=== PATIENT | female | born 1950 | race Caucasian/White ===

== ENCOUNTER 2017-08-28 12:30 | Emergency (ER) | payer MEDICARE, BC ==
[2017-08-28 12:48] VITALS: BP 154/66
--- NOTE | 2017-08-28 13:06 | EDM.PDOC ---
ED HPI GENERAL MEDICAL PROBLEM - General Chief Complaint: Abdominal Pain Stated Complaint: upper abdominal tenderness Time Seen by Provider: 08/28/17 12:53 Source of Information: Reports: Patient History Limitations: Reports: No Limitations - History of Present Illness INITIAL COMMENTS - FREE TEXT/NARRATIVE: Has been having low back pain for years and sees a chiropractor on a regular basis for this. Since Thursday she is having increase in pain to the lower thoracic back that is worse than normal. She has been using the heating pad with improvement. She feels tight and it feels "deep". No numbness or tingling noted down legs. Denies any lifting, pushing, pulling, or injury. Is concerned as this is different than her normal. Onset: Gradual Duration: Day(s): (2) Location: Reports: Back Quality: Reports: Dull, Other ("feels like a bear hug tightness") Improves with: Reports: Heat Therapy Worsens with: Reports: Movement Upper Abdominal Pain Score (Numeric/FACES): 3 - Related Data Allergies Allergy/AdvReac Type Severity Reaction Status Date / Time No Known Allergies Allergy Verified 08/28/17 12:41 Home Meds: Home Meds Aspirin [Adult Low Dose Aspirin EC] 81 mg PO DAILY 03/05/16 [History] Azelastine [Astelin Nasal Soln] 2 sprays INH DAILY PRN 03/05/16 [History] Calcium Carb & Citrate/Vit D3 [Citracal + D ER] 1,200 mg PO DAILY 03/05/16 [ History] Metoprolol Tartrate 12.5 mg PO BID 03/05/16 [History] Warfarin [Coumadin] 5 mg PO TUFR 03/05/16 [History] Warfarin [Coumadin] 7.5 mg PO SUMOWETHSA 03/05/16 [History] Disc Guard 2 tab PO DAILY 08/28/17 [History] Flaxseed 2 tbs PO DAILY 08/28/17 [History] Loratadine [Claritin] 10 mg PO DAILY 08/28/17 [History] Sovereign Silver 1 dose PO DAILY 08/28/17 [History] Past Medical History Cardiovascular History: Reports: Heart Valve Replacement, Hypertension Musculoskeletal History: Reports: Fracture - Past Surgical History Cardiovascular Surgical History: Reports: Valve Replacement Social & Family History - Tobacco Use Smoking Status *Q: Never Smoker - Living Situation & Occupation Living situation: Reports: , with Spouse Occupation: Employed ED ROS GENERAL - Review of Systems Review Of Systems: See Below Constitutional: Denies: Fever, Chills Respiratory: Reports: No Symptoms Cardiovascular: Reports: No Symptoms GI/Abdominal: Reports: No Symptoms : Reports: No Symptoms Musculoskeletal: Reports: Back Pain Neurological: Reports: No Symptoms ED EXAM,LOWER BACK PAIN/INJURY - Physical Exam Exam: See Below Exam Limited By: No Limitations General Appearance: Alert, WD/WN, Mild Distress Respiratory/Chest: No Respiratory Distress, Lungs Clear, Normal Breath Sounds Cardiovascular: Regular Rate, Rhythm, No Edema GI/Abdominal: Normal Bowel Sounds, Soft, Non-Tender, No Organomegaly, No Mass Back Exam: Normal Inspection, Decreased Range of Motion (due to pain.), Other ( pain is in the lower thoracic area. Not able to reproduce the pain at this time. Area is tender with palpation but not as significant as it was previously.) Extremities: Normal Inspection, No Pedal Edema Neurological: Alert, Oriented x 3 Skin Exam: Warm, Dry, Intact Course - Vital Signs Last Recorded V/S: Last Vital Signs Temp 97.6 F 08/28/17 12:35 Pulse 73 08/28/17 12:35 Resp 20 08/28/17 12:35 BP 154/66 H 08/28/17 12:35 Pulse Ox 96 08/28/17 12:35 - Orders/Labs/Meds Labs: Laboratory Tests 08/28/17 Range/Units 13:10 Urine Color Yellow (YELLOW) Urine Appearance Clear (CLEAR) Urine pH 5.0 (4.5-8.0) Ur Specific [place] <= 1.005 (1.003-1.020) Urine Protein Negative (NEGATIVE) mg/dL Urine Glucose (UA) Negative (NEGATIVE) mg/dL Urine Ketones Negative (NEGATIVE) mg/dL Urine Occult Blood Negative (NEGATIVE) Urine Nitrite Negative (NEGATIVE) Urine Bilirubin Negative (NEGATIVE) Urine Urobilinogen 0.2 (0.2-1.0) EU/dL Ur Leukocyte Esterase Trace H (NEGATIVE) Urine RBC Not seen (0-5) /HPF Urine WBC Not seen (0-5) /HPF Ur Squamous Epith Cells Occasional H (NOT SEEN) /HPF Departure - Departure Time of Disposition: 13:32 Disposition: Home, Self-Care 01 Condition: Good Clinical Impression: Muscle spasm of back - Discharge Information Referrals: Mateus Pelayo MD [Primary Care Provider] - Forms: ED Department Discharge Additional Instructions: continue to use heat as tolerated Tylenol as needed Recheck if not improving. Call Thursday if pain continues and will get her into PT - Problem List & Annotations (1) Muscle spasm of back SNOMED Code(s): 090486848 Code(s): M62.830 - MUSCLE SPASM OF BACK Status: Acute Current Visit: Yes - Problem List Review Problem List Initiated/Reviewed/Updated: Yes
== END 2017-08-28 13:33 | disposition home or self-care (01) ==
LOC: CC.ED 12:30
DX: M62.830 Muscle spasm of back (principal); Z79.82 Long term (current) use of aspirin; I10 Essential (primary) hypertension
CPT/HCPCS: 81001; 99283

== ENCOUNTER 2019-05-23 18:29 | Emergency (ER) | payer MEDICARE, BC ==
[2019-05-23 18:39] VITALS: BP 165/62; PULSE 63
--- NOTE | 2019-05-23 19:13 | EDM.PDOC ---
ED HPI GENERAL MEDICAL PROBLEM - General Chief Complaint: General Stated Complaint: fall, R sided pain Time Seen by Provider: 05/23/19 18:55 Source of Information: Reports: Patient History Limitations: Reports: No Limitations - History of Present Illness INITIAL COMMENTS - FREE TEXT/NARRATIVE: Guerda is a 68 yo female who presents to the ED with concerns of right sided pain after sustaining a fall this evening. She states she was coming out of the [facility] [place] [facility] and caught the lip of the door. States she fell directly on the right side. Admits she did not hit her head. She states her pain is mostly in her right rib area and her hip/buttocks. States she was able to get herself back up right away on her own. States it was a witnessed fall. Her and grandson are present and they state she did not hit her head and was able to get herself up right away. She was able to drive herself home and debated whether or not to come in. She states her convinced her to come in. Onset: Today Location: Reports: Chest, Upper Extremity, Right Right Generalized Pain Score (Numeric/FACES): 6 - Related Data Allergies Allergy/AdvReac Type Severity Reaction Status Date / Time No Known Allergies Allergy Verified 05/23/19 18:30 Home Meds: Home Meds Aspirin [Adult Low Dose Aspirin EC] 81 mg PO DAILY 03/05/16 [History] Azelastine [Astelin Nasal Soln] 2 sprays INH DAILY PRN 03/05/16 [History] Metoprolol Tartrate 12.5 mg PO BID 03/05/16 [History] Warfarin [Coumadin] 5 mg PO TUFR 03/05/16 [History] Warfarin [Coumadin] 7.5 mg PO SUMOWETHSA 03/05/16 [History] Disc Guard 2 tab PO DAILY 08/28/17 [History] Flaxseed 2 tbs PO DAILY 08/28/17 [History] Sovereign Silver 1 dose PO DAILY 08/28/17 [History] Memantine HCl 1 tab PO BID 05/23/19 [History] Rivastigmine 1 patch TRDERM Q24H 05/23/19 [History] Sertraline [Zoloft] 0.5 tab PO DAILY 05/23/19 [History] Past Medical History Cardiovascular History: Reports: Heart Valve Replacement, Hypertension Musculoskeletal History: Reports: Fracture Neurological History: Reports: Other (See Below) Other Neuro History: poor memory - Past Surgical History Cardiovascular Surgical History: Reports: Valve Replacement Social & Family History - Family History Family Medical History: Noncontributory - Tobacco Use Smoking Status *Q: Never Smoker - Alcohol Use Days Per Week of Alcohol Use: 7 Number of Drinks Per Day: 1 Total Drinks Per Week: 7 - Recreational Drug Use Recreational Drug Use: No - Living Situation & Occupation Living situation: Reports: , with Spouse Occupation: Employed ED ROS GENERAL - Review of Systems Review Of Systems: See Below Constitutional: Reports: No Symptoms HEENT: Reports: No Symptoms Respiratory: Reports: No Symptoms, Other (right rib pain) Cardiovascular: Reports: No Symptoms Endocrine: Reports: No Symptoms GI/Abdominal: Reports: No Symptoms : Reports: No Symptoms Musculoskeletal: Reports: Joint Pain (right hip). Denies: Neck Pain, Shoulder Pain, Arm Pain Neurological: Reports: Pre-Existing Deficit (early dementia). Denies: Confusion , Dizziness, Headache, Seizure, Syncope ED EXAM, GENERAL - Physical Exam Exam: See Below Exam Limited By: No Limitations General Appearance: Alert, WD/WN, No Apparent Distress Eye Exam: Bilateral Eye: EOMI, PERRL Ears: Normal External Exam, Normal Canal, Hearing Grossly Normal, Normal TMs Nose: Normal Inspection, Normal Mucosa, No Blood Throat/Mouth: Normal Inspection, Normal Lips, Normal Teeth, Normal Gums, Normal Oropharynx, Normal Voice, No Airway Compromise Head: Atraumatic, Normocephalic Neck: Normal Inspection, Supple Respiratory/Chest: No Respiratory Distress, Lungs Clear, Normal Breath Sounds, Other (mild tenderness to right lateral rib cage, no bruising noted to right rib /chest area). No: Accessory Muscle Use, Retractions, Splinting Cardiovascular: Regular Rate, Rhythm, No Edema, Systolic Murmur Back Exam: Full Range of Motion (cervical spine has full ROM, no tenderness with movement). No: Paraspinal Tenderness, Vertebral Tenderness (no cervical discomfort) Extremities: Other (tenderness along right hip with palpation, full ROM of right hip with abduction without discomfort. Able to bear weight. ). No: Arm Pain, Limited Range of Motion Neurological: Alert, Oriented, CN II-XII Intact, Normal Cognition, No Motor/ Sensory Deficits. No: Confused, Disoriented, Slow to Respond, Memory Loss Remote Events, Memory Loss Recent Events Psychiatric: Normal Affect, Normal Mood Skin Exam: Warm, Dry, Intact, Normal Color, No Rash, Other (no ecchymosis noted to right ribs or right hip area. ) Course - Vital Signs Last Recorded V/S: Last Vital Signs Temp 98.7 F 05/23/19 18:34 Pulse 63 05/23/19 18:34 Resp 16 05/23/19 18:34 BP 165/62 H 05/23/19 18:34 Pulse Ox 98 05/23/19 18:34 - Orders/Labs/Meds Orders: Active Orders 24 hr Category Date Time Status Hip Min 2V or 3V w Pelvis Rt [CR] Stat Exams 05/23/19 19:07 Ordered Ribs 2V w Chest Rt [CR] Stat Exams 05/23/19 19:07 Ordered - Radiology Interpretation Free Text/Narrative:: X-rays of right hip/pelvis and ribs were negative pending final radiology report. Departure - Departure Time of Disposition: 19:46 Disposition: Home, Self-Care 01 Condition: Good Clinical Impression: Acute right hip pain Contusion of rib on right side Qualifiers: Encounter type: initial encounter Qualified Code(s): S20.211A - Contusion of right front wall of thorax, initial encounter - Discharge Information Instructions: Contusion, [id number], Hip Pain, Musculoskeletal Pain Referrals: Mateus Pelayo MD [Primary Care Provider] - Additional Instructions: 1) Ice affected hip area, 20 minutes at a time, 5 times a day 2) May take Tylenol 500-1000mg every 6 hours as needed for discomfort. 3) Encourage taking deep breaths as well, as discussed 4) If any further concerns, advise returning to ED for reevaluation. - Problem List & Annotations (1) Acute right hip pain SNOMED Code(s): 87238914, 768162203 Code(s): M25.551 - PAIN IN RIGHT HIP Status: Acute Current Visit: Yes (2) Contusion of rib on right side SNOMED Code(s): 082000390 Code(s): S20.211A - CONTUSION OF RIGHT FRONT WALL OF THORAX, INITIAL ENCOUNTER Status: Acute Current Visit: Yes Qualifiers: Encounter type: initial encounter Qualified Code(s): S20.211A - Contusion of right front wall of thorax, initial encounter - My Orders Last 24 Hours: My Active Orders 05/23/19 19:07 Hip Min 2V or 3V w Pelvis Rt [CR] Stat Ribs 2V w Chest Rt [CR] Stat - Assessment/Plan Last 24 Hours: My Active Orders 05/23/19 19:07 Hip Min 2V or 3V w Pelvis Rt [CR] Stat Ribs 2V w Chest Rt [CR] Stat Plan: Patient and family both confirmed she did not have any head trauma. Pain is localized to right hip and rib area. She denied any neurological deficits. She is on Coumadin; however, I do not feel a trauma code is necessary at this time. I discussed with Guerda into detail further evaluation to include CT of head , which she declined. Last INR was reviewed an 2.02 on the 10 of May. Patient has been ambulatory without any visual deficits. Will discharge home at this time, which Francine verbalized understanding and was in agreement.
== END 2019-05-23 19:58 | disposition home or self-care (01) ==
LOC: CC.ED 18:29
DX: S20.211A Contusion of right front wall of thorax, initial encounter (principal); M25.551 Pain in right hip; I10 Essential (primary) hypertension; Z79.82 Long term (current) use of aspirin; Z79.01 Long term (current) use of anticoagulants; Z79.899 Other long term (current) drug therapy; W18.39XA Other fall on same level, initial encounter
CPT/HCPCS: 71101-RT; 99283; 99283-25

== ENCOUNTER 2024-11-01 11:27 | Inpatient (IN) | payer MEDICARE, BC ==
[2024-11-01] MEDS ORDERED: Sodium Chloride 0.9% 10 ML Syringe FLUSH PRN (11:59)
[2024-11-01] MEDS ORDERED: Ondansetron 4 MG/2 ML SDV IV PRN (11:59)
[2024-11-01] MEDS ORDERED: Ondansetron 4 MG Tab.DIS PO PRN (11:59)
[2024-11-01] MEDS: cefTRIAXone 1 GM Vial IVPUSH SCH (12:43)
[2024-11-01] MEDS: Warfarin 5 MG Tab PO SCH (12:43)
[2024-11-01] MEDS: Acetaminophen 325 MG Tab PO PRN (13:01)
[2024-11-01] MEDS: amLODIPine 2.5 MG Tab PO SCH (20:26)
[2024-11-01] MEDS: Metoprolol Tartrate 25 MG Tab PO SCH (20:26)
[2024-11-01] MEDS: QUEtiapine 25 MG Tab PO SCH (20:26)
[2024-11-01] MEDS: Memantine 10 MG Tab PO SCH (20:26)
[2024-11-01] MEDS: Lactobacillus Rhamnosus GG (Probiotic) Cap PO SCH (20:26)
[2024-11-01] MEDS: Ferrous Sulfate 324 MG Tab.EC PO SCH (20:27)
[2024-11-01] MEDS: Donepezil 5 MG Tab PO SCH (20:27)
[2024-11-01] MEDS: Acetaminophen 500 MG Tab PO PRN (23:33)
[2024-11-02] MEDS: Pantoprazole 40 MG Tab.CR PO SCH (07:19)
[2024-11-02] MEDS: Calcium Carbonate/Vitamin D3 1250 MG-5 MCG Tab PO SCH (07:19)
[2024-11-02] MEDS: Aspirin 81 MG Tab.EC PO SCH (07:20)
[2024-11-02 07:22] LABS: ALBUMIN 2.8 g/dL (3.4-5.0); BILIRUBIN TOTAL 0.5 mg/dL (0.0-1.0); C-REACTIVE PROTEIN 14.25 mg/dL (<=0.50); CALCIUM 8.5 mg/dL (8.4-10.1); CREATININE 1.7 mg/dL (0.6-1.0); EST CRCL DRUG DOSING (CG) 24.74 mL/min; POTASSIUM,K 3.5 mEq/L (3.5-5.0); PROTEIN TOTAL,TP 6.5 g/dL (6.4-8.2)
[2024-11-02 07:47] LABS: INR 2.66 (0.92-1.18); PROTHROMBIN TIME 26.7 SEC (9.3-11.3)
[2024-11-02 07:53] LABS: BASOPHILS ABSOLUTE AUTO 0.02 10^3/uL (0.00-0.50); BASOPHILS PERCENT AUTO 0.4 % (0-1); EOSINOPHILS ABSOLUTE AUTO 0.01 10^3/uL (0.00-1.50); EOSINOPHILS PERCENT AUTO 0.2 % (0-6); HEMATOCRIT 35.7 % (37.0-47.0); HEMOGLOBIN 11.6 g/dL (12.0-16.0); IMMATURE GRAN ABSOLUTE AUTO 0.01 10^3/uL (0.00-0.49); IMMATURE GRAN PERCENT AUTO 0.2 % (0.0-4.9); LYMPHOCYTES ABSOLUTE AUTO 0.31 10^3/uL (0.60-5.00); LYMPHOCYTES PERCENT AUTO 5.8 % (24-44); MEAN CORPUSCULAR HEMOGLOBIN 30.5 pg (27.0-32.0); MEAN CORPUSCULAR HGB CONC 32.5 g/dL (32.0-36.0); MEAN CORPUSCULAR VOLUME 93.9 fL (83.0-97.0); MONOCYTES ABSOLUTE AUTO 0.51 10^3/uL (0.00-1.50); MONOCYTES PERCENT AUTO 9.5 % (0-10); NEUTROPHILS PERCENT AUTO 83.9 % (41-71); PLATELET COUNT,PLT 115 10^3/uL (150-400); WHITE BLOOD CELL COUNT,WBC 5.4 10^3/uL (4.0-11.0)
[2024-11-02] MEDS: Warfarin 2.5 MG Tab PO SCH (12:45)
[2024-11-02] MEDS: LORazepam 2 MG/ML SDV IVPUSH PRN (14:50)
[2024-11-03 07:29] VITALS: BP 152/62; PULSE 82
[2024-11-03 07:40] LABS: BASOPHILS ABSOLUTE AUTO 0.01 10^3/uL (0.00-0.50); BASOPHILS PERCENT AUTO 0.2 % (0-1); EOSINOPHILS ABSOLUTE AUTO 0.07 10^3/uL (0.00-1.50); EOSINOPHILS PERCENT AUTO 1.2 % (0-6); HEMATOCRIT 37.1 % (37.0-47.0); HEMOGLOBIN 12.2 g/dL (12.0-16.0); IMMATURE GRAN ABSOLUTE AUTO 0.01 10^3/uL (0.00-0.49); IMMATURE GRAN PERCENT AUTO 0.2 % (0.0-4.9); LYMPHOCYTES ABSOLUTE AUTO 0.38 10^3/uL (0.60-5.00); LYMPHOCYTES PERCENT AUTO 6.7 % (24-44); MEAN CORPUSCULAR HEMOGLOBIN 30.7 pg (27.0-32.0); MEAN CORPUSCULAR HGB CONC 32.9 g/dL (32.0-36.0); MEAN CORPUSCULAR VOLUME 93.2 fL (83.0-97.0); MONOCYTES ABSOLUTE AUTO 0.72 10^3/uL (0.00-1.50); MONOCYTES PERCENT AUTO 12.7 % (0-10); NEUTROPHILS ABSOLUTE AUTO 4.49 x10^3/uL (1.80-8.00); PLATELET COUNT,PLT 127 10^3/uL (150-400); RED BLOOD CELL COUNT 3.98 x10^6/uL (4.00-5.50); WHITE BLOOD CELL COUNT,WBC 5.7 10^3/uL (4.0-11.0)
[2024-11-03 07:54] LABS: ALBUMIN 2.9 g/dL (3.4-5.0); BILIRUBIN TOTAL 0.4 mg/dL (0.0-1.0); C-REACTIVE PROTEIN 11.52 mg/dL (<=0.50); CALCIUM 8.7 mg/dL (8.4-10.1); CREATININE 1.2 mg/dL (0.6-1.0); EST CRCL DRUG DOSING (CG) 35.05 mL/min; POTASSIUM,K 3.3 mEq/L (3.5-5.0); PROTEIN TOTAL,TP 6.9 g/dL (6.4-8.2)
[2024-11-03 08:15] LABS: PROTHROMBIN TIME 40.7 SEC (9.3-11.3)
[2024-11-03 08:23] LABS: INR 4.15 (0.92-1.18)
[2024-11-03] MEDS: Potassium Chloride 10 MEQ Tab.ER PO ONE (11:32)
== END 2024-11-03 12:08 | disposition home or self-care (01) | DRG 690 ==
LOC: UNDOADMIN 11:27 → CC.MS 11:27
PROVIDERS: ADMIT Physician Assistant Medical; ATTEND Physician Assistant Medical
DX: N30.01 Acute cystitis with hematuria (principal); F03.90 Unspecified dementia, unspecified severity, without behavioral disturbance, psychotic disturbance, mood disturbance, and anxiety; I10 Essential (primary) hypertension; E66.9 Obesity, unspecified; B96.29 Other Escherichia coli [E. coli] as the cause of diseases classified elsewhere; Z79.82 Long term (current) use of aspirin; Z79.01 Long term (current) use of anticoagulants; Z79.1 Long term (current) use of non-steroidal anti-inflammatories (NSAID); Z79.2 Long term (current) use of antibiotics; Z79.899 Other long term (current) drug therapy; Z95.2 Presence of prosthetic heart valve; Z87.81 Personal history of (healed) traumatic fracture; Z68.35 Body mass index [BMI] 35.0-35.9, adult
CPT/HCPCS: 36415; 80053; 83605; 85025; 85610; 86140; A9270-GY; J0696; J2060

== ENCOUNTER 2025-07-05 08:26 | Emergency (ER) | payer MEDICARE, BC ==
[2025-07-05 09:05] LABS: BASOPHILS ABSOLUTE AUTO 0.03 10^3/uL (0.00-0.50); BASOPHILS PERCENT AUTO 0.7 % (0-1); EOSINOPHILS ABSOLUTE AUTO 0.14 10^3/uL (0.00-1.50); EOSINOPHILS PERCENT AUTO 3.1 % (0-6); IMMATURE GRAN ABSOLUTE AUTO 0.00 10^3/uL (0.00-0.49); IMMATURE GRAN PERCENT AUTO 0.0 % (0.0-4.9); LYMPHOCYTES ABSOLUTE AUTO 0.55 10^3/uL (0.60-5.00); LYMPHOCYTES PERCENT AUTO 12.3 % (24-44); MONOCYTES ABSOLUTE AUTO 0.57 10^3/uL (0.00-1.50); MONOCYTES PERCENT AUTO 12.8 % (0-10); NEUTROPHILS ABSOLUTE AUTO 3.18 x10^3/uL (1.80-8.00); NEUTROPHILS PERCENT AUTO 71.1 % (41-71); PLATELET COUNT,PLT 156 10^3/uL (150-400); RED BLOOD CELL COUNT 3.58 x10^6/uL (4.00-5.50); WHITE BLOOD CELL COUNT,WBC 4.5 10^3/uL (4.0-11.0)
[2025-07-05 09:17] LABS: APPEARANCE,URINE CLEAR (CLEAR); GLUCOSE,URINE NEGATIVE (NEGATIVE); OCCULT BLOOD,URINE NEGATIVE (NEGATIVE)
[2025-07-05 09:19] LABS: INR 2.84 (0.92-1.18)
[2025-07-05 09:29] LABS: ALANINE AMINOTRANSFERASE,ALT 19 U/L (12-78); ASPARTATE AMNIOTRANSFERASE,AST 14 U/L (15-37); BILIRUBIN TOTAL 0.6 mg/dL (0.0-1.0); BLOOD UREA NITROGEN,BUN 16 mg/dL (7-18); CARBON DIOXIDE,CO2 30 mmol/L (21-32); CHLORIDE,CL 97 mEq/L (98-106); CREATININE 1.1 mg/dL (0.6-1.0); EST CRCL DRUG DOSING (CG) 39.33 mL/min; GLUCOSE RANDOM 97 mg/dL (75-99); POTASSIUM,K 4.0 mEq/L (3.5-5.0); PROTEIN TOTAL,TP 7.2 g/dL (6.4-8.2); SODIUM,NA 135 mEq/L (136-145)
[2025-07-05 09:33] LABS: ESTIMATED GFR 53 mL/min (>=60)
[2025-07-05 09:46] VITALS: BP 155/49; PULSE 60
== END 2025-07-05 10:14 | disposition home or self-care (01) ==
LOC: CC.ED 08:26
DX: A52.17 General paresis (principal); I10 Essential (primary) hypertension; Z79.899 Other long term (current) drug therapy; Z79.82 Long term (current) use of aspirin; Z79.01 Long term (current) use of anticoagulants
CPT/HCPCS: 36415; 80053; 81003; 85025; 85610; 86140; 99284

== ENCOUNTER 2025-07-12 09:24 | Emergency (ER) | payer MEDICARE, BC ==
[2025-07-12 09:46] VITALS: BP 149/70; PULSE 74
[2025-07-12 09:46] LABS: BASOPHILS ABSOLUTE AUTO 0.03 10^3/uL (0.00-0.50); BASOPHILS PERCENT AUTO 0.5 % (0-1); EOSINOPHILS ABSOLUTE AUTO 0.35 10^3/uL (0.00-1.50); EOSINOPHILS PERCENT AUTO 5.4 % (0-6); IMMATURE GRAN ABSOLUTE AUTO 0.01 10^3/uL (0.00-0.49); IMMATURE GRAN PERCENT AUTO 0.2 % (0.0-4.9); LYMPHOCYTES ABSOLUTE AUTO 0.48 10^3/uL (0.60-5.00); LYMPHOCYTES PERCENT AUTO 7.4 % (24-44); MONOCYTES ABSOLUTE AUTO 0.74 10^3/uL (0.00-1.50); MONOCYTES PERCENT AUTO 11.4 % (0-10); NEUTROPHILS ABSOLUTE AUTO 4.86 x10^3/uL (1.80-8.00); NEUTROPHILS PERCENT AUTO 75.1 % (41-71); PLATELET COUNT,PLT 144 10^3/uL (150-400); RED BLOOD CELL COUNT 3.53 x10^6/uL (4.00-5.50); WHITE BLOOD CELL COUNT,WBC 6.5 10^3/uL (4.0-11.0)
[2025-07-12 09:55] LABS: INR 2.92 (0.92-1.18)
[2025-07-12 09:59] LABS: ALANINE AMINOTRANSFERASE,ALT 20.0 U/L (12-78); ASPARTATE AMNIOTRANSFERASE,AST 17.0 U/L (15-37); BILIRUBIN TOTAL 0.6 mg/dL (0.0-1.0); BLOOD UREA NITROGEN,BUN 15.0 mg/dL (7-18); CARBON DIOXIDE,CO2 29.0 mmol/L (21-32); CHLORIDE,CL 98.0 mEq/L (98-106); CREATININE 1.0 mg/dL (0.6-1.0); EST CRCL DRUG DOSING (CG) 41.45 mL/min; ESTIMATED GFR 59.0 mL/min (>=60); GLUCOSE RANDOM 108.0 mg/dL (75-99); POTASSIUM,K 3.7 mEq/L (3.5-5.0); PROTEIN TOTAL,TP 7.3 g/dL (6.4-8.2); SODIUM,NA 132.0 mEq/L (136-145)
[2025-07-12] MEDS: Diphtheria,Pertussis(Acell),Tetanus Vaccine 0.5 ML Syringe IM ONE (10:35)
== END 2025-07-12 11:15 | disposition home or self-care (01) ==
LOC: CC.ED 09:24
DX: S52.501A Unspecified fracture of the lower end of right radius, initial encounter for closed fracture (principal); S52.601A Unspecified fracture of lower end of right ulna, initial encounter for closed fracture; I10 Essential (primary) hypertension; Z79.82 Long term (current) use of aspirin; Z79.01 Long term (current) use of anticoagulants; Z23 Encounter for immunization; Z79.899 Other long term (current) drug therapy; W18.39XA Other fall on same level, initial encounter; Y93.89 Activity, other specified
CPT/HCPCS: 36415; 70450; 71045; 72125; 72170; 73110-LT; 80053; 85025; 85610; 90471; 90715; 99284-25

== ENCOUNTER 2025-09-24 10:35 | Emergency (ER) | payer MEDICARE, BC ==
[2025-09-24 10:55] LABS: BASOPHILS ABSOLUTE AUTO 0.02 10^3/uL (0.00-0.50); BASOPHILS PERCENT AUTO 0.4 % (0-1); EOSINOPHILS ABSOLUTE AUTO 0.24 10^3/uL (0.00-1.50); EOSINOPHILS PERCENT AUTO 4.3 % (0-6); IMMATURE GRAN ABSOLUTE AUTO 0.01 10^3/uL (0.00-0.49); IMMATURE GRAN PERCENT AUTO 0.2 % (0.0-4.9); LYMPHOCYTES ABSOLUTE AUTO 0.55 10^3/uL (0.60-5.00); LYMPHOCYTES PERCENT AUTO 9.8 % (24-44); MONOCYTES ABSOLUTE AUTO 0.51 10^3/uL (0.00-1.50); MONOCYTES PERCENT AUTO 9.1 % (0-10); NEUTROPHILS ABSOLUTE AUTO 4.27 x10^3/uL (1.80-8.00); NEUTROPHILS PERCENT AUTO 76.2 % (41-71); PLATELET COUNT,PLT 203 10^3/uL (150-400); RED BLOOD CELL COUNT 3.80 x10^6/uL (4.00-5.50); WHITE BLOOD CELL COUNT,WBC 5.6 10^3/uL (4.0-11.0)
[2025-09-24 11:09] LABS: ALANINE AMINOTRANSFERASE,ALT 26 U/L (12-78); BILIRUBIN TOTAL 0.6 mg/dL (0.0-1.0); BLOOD UREA NITROGEN,BUN 14 mg/dL (7-18); CREATININE 0.7 mg/dL (0.6-1.0); GLUCOSE RANDOM 136 mg/dL (75-99); PROTEIN TOTAL,TP 7.5 g/dL (6.4-8.2)
[2025-09-24 11:13] LABS: INR 4.58 (0.92-1.18)
[2025-09-24 11:19] LABS: ASPARTATE AMNIOTRANSFERASE,AST 14 U/L (15-37); CARBON DIOXIDE,CO2 26 mmol/L (21-32); CHLORIDE,CL 99 mEq/L (98-106); ESTIMATED GFR 91 mL/min (>=60); POTASSIUM,K 3.2 mEq/L (3.5-5.0); SODIUM,NA 136 mEq/L (136-145)
[2025-09-24] MEDS: fentaNYL 50 MCG/ML SDV IVPUSH ONE (11:55)
[2025-09-24] MEDS: LORazepam 2 MG/ML SDV IVPUSH STA (14:30)
[2025-09-24 16:04] VITALS: BP 124/72; PULSE 77
== END 2025-09-24 15:00 | disposition home or self-care (01) ==
LOC: CC.ED 10:35
DX: S52.502A Unspecified fracture of the lower end of left radius, initial encounter for closed fracture (principal); S52.602A Unspecified fracture of lower end of left ulna, initial encounter for closed fracture; S01.21XA Laceration without foreign body of nose, initial encounter; Z79.01 Long term (current) use of anticoagulants; Z79.899 Other long term (current) drug therapy; W18.30XA Fall on same level, unspecified, initial encounter; Y92.009 Unspecified place in unspecified non-institutional (private) residence as the place of occurrence of the external cause
CPT/HCPCS: 12011; 25605; 36415; 70450; 71045; 72125; 72170; 73110-LT; 80053; 83605; 83690; 85025; 85610; 96365; 96375; 99285-25; J2060; J3010; J3430